=== PATIENT | male | born 1965 | race Caucasian/White ===

== ENCOUNTER → 2018-03-10 15:05 | Outpatient (CLI) | payer OTHER, SELFPAY ==
--- NOTE | 2018-03-10 15:21 | XR_ITS ---
EXAM: XR cervical spine 5V HISTORY: ITS.REASON: LT ARM/SHOULDER PAIN ORDERING PHYSICIAN: Rehan Maxwell PATIENT AGE: 52 years COMPARISON: None FINDINGS: There is normal alignment. Degenerative disc disease is present at C5-C6 and C6-C7. Mild foraminal narrowing is present on the left at these levels from uncovertebral hypertrophy. No fracture or dislocation. No lytic or blastic change. There are bilateral impacted molars in the mandible IMPRESSION: Degenerative disc disease at C5-C6 and C6-C7 with foraminal narrowing on the left at those levels as well
== END ==
PROVIDERS: PCP Internal Medicine; Visit Provider Internal Medicine
DX: M79.602 Pain in left arm (principal); M25.512 Pain in left shoulder
CPT/HCPCS: 72050

== ENCOUNTER → 2018-09-12 15:41 | Outpatient (CLI) | payer OTHER, SELFPAY ==
--- NOTE | 2018-09-12 15:48 | XR_ITS ---
XR shoulder RT min 2V HISTORY: ITS.REASON: RT SHOULDER PAIN ORDERING PHYSICIAN: Rehan Maxwell PATIENT AGE: 52 years Comparison: 04/18/2016 FINDINGS: No fracture or dislocation. No lytic or blastic change. There is normal mineralization. The joint spaces are well-preserved. No significant degenerative/arthritic changes. No erosive changes evident. IMPRESSION: Negative, no acute finding
== END ==
PROVIDERS: PCP Internal Medicine; Visit Provider Internal Medicine
DX: M25.511 Pain in right shoulder (principal)
CPT/HCPCS: 73030

== ENCOUNTER → 2019-01-09 14:52 | Outpatient (CLI) | payer OTHER, SELFPAY ==
--- NOTE | 2019-01-09 15:03 | XR_ITS ---
PROCEDURE: XR ACUTE ABDOMEN SERIES CLINICAL INDICATION: LOWER ABD PAIN COMPARISON: ABDPELW CT ABD PELVIS W/ CONTRAST from 02/05/2013 FINDINGS: Frontal view of the chest shows no acute finding. Upright and supine views of the abdomen demonstrates a nonspecific bowel gas pattern. There are few nondistended gas-filled loops of small bowel. No intestinal obstruction or free air. No acute bony anomalies. Small calcific density is present in the right pelvic region and could be due to a phleboliths IMPRESSION: No acute findings. Dictated by: Sukhjinder Tobin MD 01/09/2019 15:28 Signed by: <Electronically signed by Sukhjinder Tobin MD in [place]> 01/09/2019 15:28
[2019-01-09 15:07] LABS: Basophils % 0.2 % (0.1-2.0); Eosinophils # 0.1 K/mm3 (0.0-0.4); Eosinophils % 1.2 % (0.1-12.0); Hemoglobin 14.9 g/dL (14.1-18.0); Lymphocytes # 1.5 K/mm3 (0.7-4.5); Lymphocytes % 16.3 % (10-50); Mean Corpuscular HGB Conc 33.9 g/dL (31.8-35.4); Mean Corpuscular Hemoglobin 29.2 pg (27.0-31.2); Mean Corpuscular Volume 86.2 fl (80-94); Monocytes # 0.6 K/mm3 (0.1-1.0); Neutrophils # 6.8 K/mm3 (1.8-7.8); Neutrophils % 75.4 % (37.0-80.0); Platelet Count 233 K/mm3 (142-424)
[2019-01-09 15:15] LABS: Anion Gap 9.2 mEq/L (5-15); Blood Urea Nitrogen 19 mg/dL (7-18); Calcium 9.7 mg/dL (8.5-10.1); Carbon Dioxide 31 mmol/L (21.0-32.0); Chloride 101 mmol/L (98-107); Creatinine,Serum 1.08 mg/dL (0.70-1.30); Estimated Glomerular Filt Rate 72 ml/min (>60); GFR (African American) 87 ML/MIN (>60); Glucose 213 mg/dL (74-106); Potassium 4.2 mmoL/L (3.5-5.1); Sodium 137 mmol/L (136-145)
== END ==
PROVIDERS: Visit Provider Internal Medicine
DX: R10.30 Lower abdominal pain, unspecified (principal)
CPT/HCPCS: 36415; 74021; 80048; 85025

== ENCOUNTER → 2020-05-04 15:44 | Outpatient (CLI) | payer OTHER, SELFPAY ==
--- NOTE | 2020-05-04 15:48 | XR_ITS ---
PROCEDURE: XR CHEST 2V CLINICAL HISTORY: FELL AND HIT LT CHEST AT WORK ON 05/02/20 COMPARISON: No exams were available for comparison FINDINGS: The cardiomediastinal silhouette and pulmonary vascularity are within normal limits. The lungs are clear without infiltrates, suspicious nodules, or pleural effusions. No acute bony abnormalities. IMPRESSION: No acute findings. Dictated by: Sukhjinder Tobin MD 05/04/2020 16:02 Sukhjinder Tobin MD in [facility] 05/04/2020 16:02
== END ==
PROVIDERS: PCP Internal Medicine; Visit Provider Internal Medicine
DX: R07.89 Other chest pain (principal); W19.XXXA Unspecified fall, initial encounter
CPT/HCPCS: 71046

== ENCOUNTER → 2020-05-09 11:36 | Outpatient (CLI) | payer OTHER, SELFPAY ==
--- NOTE | 2020-05-09 11:40 | XR_ITS ---
PROCEDURE: XR RIBS LT MIN 3V W CXR1V CLINICAL INDICATION: LT RIB PAIN, S/P SLIP AND INJURY 05/02 COMPARISON: CR XR CHEST 2V from 05/04/2020 FINDINGS: Frontal view of the chest shows no acute finding. There are old fractures involving the left ribs at the 11th 10th and 8th ribs. No acute displaced rib fracture is evident. No evidence of pneumothorax. IMPRESSION: Old left-sided rib fractures. No acute finding. Dictated by: Sukhjinder Tobin MD 05/09/2020 12:02 Sukhjinder Tobin MD in [place] 05/09/2020 12:02
== END ==
PROVIDERS: PCP Internal Medicine; Visit Provider Internal Medicine
DX: R07.81 Pleurodynia (principal); W19.XXXA Unspecified fall, initial encounter
CPT/HCPCS: 71101

== ENCOUNTER → 2020-07-09 08:49 | Outpatient (CLI) | payer OTHER, SELFPAY ==
[2020-07-09 10:16] LABS: Thyroid Stimulating Hormone 3.07 uIU/mL (0.465-4.68)
[2020-07-20 14:55] LABS: Testosterone, Total, LC/MS 609.3 ng/dL (264.0-916.0); Testosterone,Free 6.7 pg/mL (7.2-24.0)
== END ==
PROVIDERS: Visit Provider Physician Assistant
DX: R68.82 Decreased libido (principal)
CPT/HCPCS: 36415; 84402; 84403; 84443

== ENCOUNTER → 2020-10-21 15:18 | Outpatient (CLI) | payer OTHER, SELFPAY ==
--- NOTE | 2020-10-21 15:22 | XR_ITS ---
PROCEDURE: XR PELVIS 1-2V CLINICAL INDICATION: RT PELVIS PAIN COMPARISON: CR XR ACUTE ABDOMEN SERIES from 01/09/2019 TECHNIQUE: XR Pelvis AP View FINDINGS: No fracture or dislocation is evident. No significant degenerative change. No lytic or blastic change. Small pelvic calcifications are present similar to an older exam of 01/09/2019. IMPRESSION: No acute findings. Dictated by: Sukhjinder Tobin MD 10/21/2020 15:40 Sukhjinder Tobin MD in [place] 10/21/2020 15:40
== END ==
PROVIDERS: PCP Internal Medicine; Visit Provider Internal Medicine
DX: R10.2 Pelvic and perineal pain (principal)
CPT/HCPCS: 72170

== ENCOUNTER → 2020-10-22 09:27 | Outpatient (CLI) | payer OTHER, SELFPAY ==
[2020-10-22 11:22] LABS: Free T4 (Free Thyroxine) 1.04 ng/dl (0.78-2.19)
[2020-10-22 11:37] LABS: Thyroid Stimulating Hormone 3.96 uIU/mL (0.465-4.68)
[2020-10-23 08:10] LABS: FSH 5.7 mIU/mL (1.5-12.4); LH 6.2 mIU/mL (1.7-8.6); Prolactin 20.7 ng/mL (4.0-15.2)
[2020-10-27 13:10] LABS: Testosterone,Free 7.7 pg/mL (7.2-24.0)
== END ==
PROVIDERS: Visit Provider Physician Assistant
DX: E03.8 Other specified hypothyroidism (principal); E06.3 Autoimmune thyroiditis; R79.89 Other specified abnormal findings of blood chemistry
CPT/HCPCS: 36415; 82626; 82670; 83001; 83002; 84146; 84402; 84403; 84439; 84443

== ENCOUNTER → 2022-06-23 09:52 | Outpatient (CLI) | payer OTHER, SELFPAY ==
[2022-06-23 10:43] LABS: Chloride 108 mmol/L (98-107)
[2022-06-23 10:44] LABS: Potassium 4.8 mmoL/L (3.5-5.1); Sodium 138 mmol/L (136-145)
[2022-06-23 10:46] LABS: Alanine Aminotransferase 26 U/L (12-78); Albumin Level 4.3 g/dl (3.5-5.0); Albumin/Globulin Ratio 1.7 (1.1-1.8); Alkaline Phosphatase 58 U/L (38-126); Anion Gap 8.8 mEq/L (5-15); Aspartate Amino Transferase 41 U/L (17-59); Bilirubin,Total 0.9 mg/dl (0.2-1.3); Blood Urea Nitrogen 24 mg/dl (9-20); Carbon Dioxide 26 mmol/L (22.0-30.0); Estimated Glomerular Filt Rate 88 ml/min (>60); GFR (African American) 106 ML/MIN (>60); Globulin 2.6 g/dL (1.3-3.2); Total Protein,Serum 6.9 g/dl (6.3-8.2)
[2022-06-23 10:47] LABS: Calcium 8.7 mg/dl (8.4-10.2); Chol/HDL Ratio 4.3 (1-3.5); Cholesterol 214 mg/dl (140-200); Glucose 149 mg/dl (74-100); HDL Cholesterol 50 mg/dl (40-60); Triglycerides 138 mg/dl (30-150); VLDL Cholesterol 28 mg/dL (0-40)
[2022-06-23 10:58] LABS: Direct LDL Cholesterol 125.48 mg/dL (100-129)
[2022-06-23 11:17] LABS: Thyroid Stimulating Hormone 2.69 uIU/mL (0.465-4.68)
== END ==
PROVIDERS: PCP Internal Medicine; Visit Provider Physician Assistant
DX: E78.00 Pure hypercholesterolemia, unspecified (principal); E03.8 Other specified hypothyroidism; E06.3 Autoimmune thyroiditis; E10.65 Type 1 diabetes mellitus with hyperglycemia
CPT/HCPCS: 36415; 80053; 80061; 84443

== ENCOUNTER → 2022-09-08 08:10 | Outpatient (CLI) | payer OTHER, SELFPAY ==
[2022-09-08 09:20] LABS: Alanine Aminotransferase 23 U/L (12-78); Albumin Level 4.1 g/dl (3.5-5.0); Albumin/Globulin Ratio 1.9 (1.1-1.8); Alkaline Phosphatase 63 U/L (38-126); Anion Gap 9.3 mEq/L (5-15); Aspartate Amino Transferase 30 U/L (17-59); Bilirubin,Total 0.8 mg/dl (0.2-1.3); Blood Urea Nitrogen 21 mg/dl (9-20); Calcium 8.6 mg/dl (8.4-10.2); Carbon Dioxide 30 mmol/L (22.0-30.0); Chloride 105 mmol/L (98-107); Chol/HDL Ratio 3.8 (1-3.5); Cholesterol 152 mg/dl (140-200); Estimated Glomerular Filt Rate 88 ml/min (>60); GFR (African American) 106 ML/MIN (>60); Globulin 2.2 g/dL (1.3-3.2); Glucose 127 mg/dl (74-100); HDL Cholesterol 40 mg/dl (40-60); Potassium 4.3 mmoL/L (3.5-5.1); Sodium 140 mmol/L (136-145); Total Protein,Serum 6.3 g/dl (6.3-8.2); Triglycerides 160 mg/dl (30-150); VLDL Cholesterol 32 mg/dL (0-40)
[2022-09-08 09:31] LABS: Direct LDL Cholesterol 78.86 mg/dL (100-129)
== END ==
PROVIDERS: PCP Internal Medicine; Visit Provider Physician Assistant
DX: E78.00 Pure hypercholesterolemia, unspecified (principal); E10.65 Type 1 diabetes mellitus with hyperglycemia
CPT/HCPCS: 36415; 80053; 80061

== ENCOUNTER 2023-09-21 10:26 | Outpatient (CLI) | payer OTHER, SELFPAY ==
[2023-09-21 12:13] LABS: Cholesterol 253 mg/dl (140-200); Triglycerides 136 mg/dl (30-150); VLDL Cholesterol 27 mg/dL (0-40)
[2023-09-21 12:14] LABS: Chol/HDL Ratio 5.8 (1-3.5); HDL Cholesterol 44 mg/dl (40-60)
[2023-09-21 12:25] LABS: Direct LDL Cholesterol 145.17 mg/dL (100-129)
== END 2023-09-21 23:59 | disposition home or self-care (01) ==
LOC: LAB 10:27
PROVIDERS: PCP Internal Medicine; Visit Provider Internal Medicine
DX: E78.5 Hyperlipidemia, unspecified (principal)
CPT/HCPCS: 36415; 80061

== ENCOUNTER 2024-07-21 15:01 | Outpatient (RCR) | payer BC, SELFPAY | END 2024-08-26 15:00 | disposition home or self-care (01) | LOC: CR 15:01 | PROVIDERS: Visit Provider Clinical Nurse Specialist Adult Health | DX: Z95.5 Presence of coronary angioplasty implant and graft (principal) | CPT/HCPCS: 93798 ==

== ENCOUNTER 2024-10-09 08:36 | Outpatient (CLI) | payer BC, SELFPAY ==
[2024-10-09 09:06] LABS: Hematocrit 43.8 % (42.0-52.0); Mean Corpuscular HGB Conc 34.2 g/dL (31.8-35.4); Mean Corpuscular Hemoglobin 28.8 pg (27.0-31.2); Mean Corpuscular Volume 84.2 fl (80-94); Nucleated Red Blood Cells # 0 10^3/uL; Nucleated Red Blood Cells % 0 %; Platelet Count 207 K/mm3 (142-424); Red Cell Distribution Width 13.2 % (11.5-17.5); Red Cell Distribution Width-SD 40.3 fL; White Blood Count 5.1 K/mm3 (4.8-10.8)
[2024-10-09 09:26] LABS: Albumin Level 4.6 g/dl (3.5-5.0); Chloride 104 mmol/L (98-107); Potassium 4.9 mmoL/L (3.5-5.1); Sodium 139 mmol/L (136-145)
[2024-10-09 09:29] LABS: Alanine Aminotransferase 39 U/L (12-78); Albumin/Globulin Ratio 1.7 (1.1-1.8); Anion Gap 9.9 mEq/L (5-15); Aspartate Amino Transferase 43 U/L (17-59); Blood Urea Nitrogen 32 mg/dl (9-20); Carbon Dioxide 30 mmol/L (22.0-30.0); Estimated Glomerular Filt Rate 63 ml/min (>60); GFR (African American) 76 ML/MIN (>60); Globulin 2.7 g/dL (1.3-3.2); Total Protein,Serum 7.3 g/dl (6.3-8.2)
[2024-10-09 09:30] LABS: Alkaline Phosphatase 60 U/L (38-126); Bilirubin,Total 1.1 mg/dl (0.2-1.3); Calcium 9.4 mg/dl (8.4-10.2); Glucose 162 mg/dl (74-100)
[2024-10-09 09:44] LABS: Chol/HDL Ratio 3.1 (1-3.5); Cholesterol 132 mg/dl (140-200); HDL Cholesterol 42 mg/dl (40-60); Triglycerides 92 mg/dl (30-150); VLDL Cholesterol 18 mg/dL (0-40)
[2024-10-09 09:45] LABS: Creatinine,Urine Random 98 mg/dL (Not Estab.); Microalbumin < 6.000 mg/L (0-16.7)
[2024-10-09 09:55] LABS: Direct LDL Cholesterol 75.85 mg/dL (100-129)
[2024-10-09 10:01] LABS: Thyroid Stimulating Hormone 3.15 uIU/mL (0.465-4.68)
[2024-10-09 10:36] LABS: Vitamin B12 > 1000 pg/mL (239-931)
== END 2024-10-09 23:59 | disposition home or self-care (01) ==
LOC: LAB 08:38
PROVIDERS: Nurse Practitioner Family; PCP Internal Medicine; Visit Provider Internal Medicine
DX: E10.65 Type 1 diabetes mellitus with hyperglycemia (principal); E06.3 Autoimmune thyroiditis; E78.5 Hyperlipidemia, unspecified; I25.10 Atherosclerotic heart disease of native coronary artery without angina pectoris
CPT/HCPCS: 36415; 80053; 80061; 82043; 82570; 82607; 84443; 85027

== ENCOUNTER 2025-03-06 08:56 | Outpatient (CLI) | payer BC, SELFPAY ==
--- OUTSIDE RECORDS SUMMARY | 2025-03-02 16:00 | XMS_ITS | Encounter Summary ---
Author Organization [facility] Address [address] [place] [address] Care Team Providers Care Swimming Pool Service Technician Name Role Phone Rehan Maxwell MD Primary Care Provider [phone] Reason for Visit * Reason Comments Diabetes Type 1 diabetes emma itus with hyperglycemia Encounter Details Date Type Department Care Team (Late st Contact Info) Description 03/02/2025 4:00 PM EDT Office Visit [facility] END[facility] [address] [place] [address] Katarina Briceño MD [address] [facility] [address] [place] [address] Type 1 diabetes mellitus with hyperglycemia (Primary Dx) Social History Tobacco Use Types Packs/Day Years Used Date Smoking Tobacco: Never Smokeless Tobacco: Never Tobacco Cessation:Counseling Given: Not Answered Alcohol Use Standard Drinks/Week Comments Not Currently 0 (1 standard drink = 0.6 oz pur e alcohol) AUDIT-C Answer Date Recorded Q1: How often do you have a drink containing alcohol? Never 06/12/2024 Q2: How many drinks containi ng alcohol do you have on a typical day when you are drinking? Patient does not drink Q3: How often do you have si x or more drinks on one occasion? Never 06/12/2024 Abuse Screen Answer Date Recorded Feels Unsafe at Home or Work/School no 06/12/2024 Feels Threatened by Someone no 05/21 Does Anyone Try to Keep You From Having Contact with Others or Doing Things Outside Your Home? no 06/12/2024 Physical Signs of Abuse Present no 06/12/2024 Housing Stability Answer Date Recorded Current Living Arrangements home 05/21 Potentially Unsafe Housing Conditions Not on gita e 06/12/2024 Disabilities Answer Date Recorded Difficulty Concentrating, Remembering or Making Decisions no 06/12/2024 Difficulty Managing Errands Independently no 06/12/2024 Sex and Gender Information Value Date Recorded Sex Assigned at Male 10/04/2024 9:23 PM EDT Legal Sex Male 1:12 PM EDT Gender Identity Not on file Sexual Orientation Straight 10/04/2024 9: 23 PM EDT documented as of this encounter Last Filed Vital Signs Vital Sign Reading Time Taken Comments Blood Pressure 124/80 03/02/2025 3:49 PM EDT Pulse 70 03/02/2025 3:49 PM EDT Temperature - - Respiratory Rate - - Oxygen Saturation 97% 03/02/2025 3:49 PM EDT Inhaled Oxygen Concentration - - Weight 85.7 kg (189 lb) 03/02/2025 3:49 PM EDT Height 177.8 cm (5' 10 ) 03/02/2025 3:49 PM EDT Body Mass Index 27.12 03/02/2025 3:49 PM EDT documented in this encounter Plan of Treatment Upcoming Encounters Date Type Department Care Team (Late st Contact Info) Description 04/06/2025 3:00 PM EST Office Visit [facility] C[facility]Y [address] [place] [address] Sonal Dunne APRN [address] [place] [address] 07/05/2025 3:30 PM EST Office Visit [facility] END[facility]CR[facility] [address] [place] [address] Katarina Briceño MD [address] [place] [address] documented as of this encounter Procedures Procedure Name Priority Date/Time Associated Diagnosis Comments POCT GLYCOSYLATED HEMOGLOBIN (HGB A1C) Routine 03/02/2025 3:56 PM EDT Type 1 diabetes mellitus with hyperglycemia POCT GLUCOSE, BLD (NON STRIP) Routine 03/02/2025 3:55 PM EDT Type 1 diabetes mellitus with hyperglycemia documented in this encounter Results * (ABNORMAL) POC Glycosylated Hemoglobin (Hb A1C) (03/02/2025 3:56 PM EDT) Hemoglobin A1C 7.3(A) 4.5 - 5.7 % [facility] Lot Number [id number] [facility] Expiration Date 2026-09-21 [facility] Blood 03/02/2025 3:56 PM EDT us Katarina Briceño MD POINT OF CARE TEST ORDERABLES Fi nal Result [facility]
[address] [place] [address], * (ABNORMAL) POC Glucose, Blood (03/02/2025 3:55 PM EDT) Glucose 160(A) 70 - 130 mg/dL Lot Number [id number] Expiration Date 2026-08-07 Blood 03/02/2025 3:55 PM EDT us Katarina Briceño MD POINT OF CARE TEST ORDERABLES Fi nal Result documented in this encounter Visit Diagnoses Diagnosis Type 1 diabetes mellitus with hyperglycemia- Primary documented in this encounter Care Teams Swimming Pool Service Technician Relationship Specialty Start Date End Date Rehan Maxwell MD [address] [facility] [address] [place] [id number] PCP - General Internal Medicine 03/25/20 documented as of this encounter
--- OUTSIDE RECORDS SUMMARY | 2025-03-06 09:00 | XMS_ITS | Clinical Summary ---
[facility] Address [address] [place] [address] Care Team Providers Care Director Advanced Name Role Phone Rehan Maxwell MD Primary Care Provider [phone] Allergies Active Allergy Reactions Criticality Noted Date Comments Levofloxacin Other (See Comments) High 03/25/2020 Joint pain Medications piroxicam (FELDENE) 20 MG capsule Take 1 capsule by mouth Daily. 0 Active insulin glargine (Lantus) 100 UNIT/ML injection PRN off insulin pump, 35 units once daily 10 mL 2 Active Contour Next Test test stripIndications: Type 1 diabetes mellitus with hyperglycemia TEST 8-9 TIMES A DAY. 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 5 Active HumaLOG 100 UNIT/ML injectionIndicati ons:Type 1 diabetes mellitus with hyperglycemia USE DIRECTED PER INSULIN PUMP, UP TO 100 UNITS MAX PER DAY 90 mL 3 5 Active Continuous Glucose Transmitter (Dexcom G6 Transmitter) miscIndications:T ype 1 diabetes mellitus with hyperglycemia USE 1 DEVICE EVERY 3 MONTHS 1 each 3 5 Active empagliflozin (Jardiance) 10 MG tablet tabletIndications :Coronary artery disease involving chehalis coronary artery of chehalis heart without angina pectoris Take 1 tablet by mouth Daily. 30 tablet 5 5 Active olmesartan (BENICAR) 20 MG tabletIndications :Benign essential hypertension Take 1 tablet by mouth Daily. 90 tablet 1 5 Active carvedilol (COREG) 3.125 MG tablet Take 1 tablet by mouth 2 (Two) Times a Day. 180 tablet 1 5 Active clopidogrel (PLAVIX) 75 MG tablet Take 1 tablet by mouth Daily. 90 tablet 1 5 Active ezetimibe (ZETIA) 10 MG tabletIndications :Hyperlipidemia LDL goal <70,Coronary artery disease involving chehalis coronary artery of chehalis heart without angina pectoris Take 1 tablet by mouth Daily. 90 tablet 1 5 Active rosuvastatin (CRESTOR) 10 MG tablet Take 0.5 tablets by mouth 2 (Two) Times a Day. Two times a day if tolerated since 10mg once a day is not tolerated. 90 tablet 1 5 Active traZODone (DESYREL) 50 MG tablet Take one to two pills at night if needed for insomnia 60 tablet 2 5 Active Additional Information Patient not taking.Reported on 03/02/2025 cloNIDine (CATAPRES) 0.1 MG tablet TAKE 1 TABLET BY MOUTH EVERY 12 HOURS IF BLOOD PRESSURE IS OVER 160/90 60 tablet 5 Active Continuous Glucose Sensor (Dexcom G6 Sensor)Indication s:Type 1 diabetes mellitus with hyperglycemia PL[address] 1 SENSOR TO THE APPROPRIATE AREA DIRECTED EVERY 10 DAYS 9 each 1 5 Active Active Problems Problem Noted Date Diagnosed Date Statin not tolerated 07/09/2024 Assessment & Plan (07/09/2024 3:23 PM EST): His Rosuvastatin was increased from 5mg daily to 20mg daily inpatient. We had done a low dose related to his myalgias with statins. Today he reports he was unable to tolerate 20mg related to muscle aches so he has been cutting it in half for 10mg daily. He said this is still causing myalgias but is tolerable. For today, we will go back to Rosuvastatin 5mg and start Zetia 10mg daily. Will also try to get Repatha approved in the meantime, although it has not been affordable in the past. Shortness of breath 04/08/2024 Assessment & Plan (06/03/2024 5:25 PM EST): Patient had one episode of shortness of air. He went home from [facility] and took his blood pressure - it was 81/52 with a normal heart rate. He then remembered that he had taken a whole blood pressure pill instead of the half he normally takes. He has not had this happen again since but wanted to get checked out due to his families cardiac history. 06/03/2024 Abnormal DARCI. Order [facility]. Assessment & Plan (04/08/2024 3:59 PM EST): Patient had one episode of shortness of air. He went home from [facility] and took his blood pressure - it was 81/52 with a normal heart rate. He then remembered that he had taken a whole blood pressure pill instead of the half he normally takes. He has not had this happen again since but wanted to get checked out due to his families cardiac history. Family history of early CAD 04/08/2024 Assessment & Plan (06/03/2024 5:24 PM EST): His dad had a CABG at age 57 then later on was diagnosed with Aneurysm in heart that caused a heart attack, afib, and CHF. His sister at age 53 from a heart attack. His 34 yo niece in her sleep from a heart attack. Daughter has POTS. 06/03/24 abnormal DARCI. Check left heart catherization Assessment & Plan (04/08/2024 3:58 PM EST): His dad had a CABG at age 57 then later on was diagnosed with Aneurysm in heart that caused a heart attack, afib, and CHF. His sister at age 53 from a heart attack. His 34 yo niece in her sleep from a heart attack. Daughter has POTS. Coronary artery disease invo lving chehalis coronary artery of chehalis heart without angina pectoris 04/08/2024 Assessment & Plan (10/06/2024 3:42 PM EDT): Repatha- Cost too high Statins- only on low doses, otherwise he gets myalgias. Tried Rosuvastatin 20mg, 10mg, and now we are back to 5mg. He is willing to try to take the 5mg BID. He is also now on and tolerating Zetia that we added last visit. He will update fasting lipids this weekend when he gets labs for [facility]. 06/12/2024 [facility] 90% LAD stenosis treated 3.5 x 12, 3.0 x 38 Xience amy point LAST. 90% OM1 treated 2.5 x 28 Xience EES 40-50% distal LAD, and right PDA. LVEF 50% He is still on Plavix and ASA. He said he feels much better since getting his cardiac stents. He can breathe better and able to work and go up stairs without any issues. He did 6 sessions of cardiac rehab, but due to work he is now doing home session on his elliptical 3 times a week. He has also cut his sodium down to 1500mg daily. Assessment & Plan (07/09/2024 3:22 PM EST): 06/12/2024 [facility] 90% LAD stenosis treated 3.5 x 12, 3.0 x 38 Xience amy point LAST. 90% OM1 treated 2.5 x 28 Xience EES 40-50% distal LAD, and right PDA. LVEF 50% He was started on Plavix and told to continue ASA. His Rosuvastatin was increased from 5mg daily to 20mg daily. We had done a low dose related to his myalgias with statins. Today he reports he was unable to tolerate 20mg related to muscle aches so he has been cutting it in half for 10mg daily. He said this is still causing myalgias but is tolerable. For today, we will go back to Rosuvastatin 5mg and start Zetia 10mg daily. Will also try to get Repatha approved in the meantime, although it has not been affordable in the past. EKG today shown sinus rhythm with RBBB. HR 69. Abnormal EKG. He said he feels much better since getting his cardiac stents. He can breathe better and able to work and go up stairs without any issues. He plans to start cardiac rehab next week. Assessment & Plan (06/03/2024 5:26 PM EST): 06/03/24 abnormal DARCI; check [facility] Assessment & Plan (04/08/2024 4:00 PM EST): -check echo and DARCI. If insurance will not cover a DARCI then we can consider a CCTA or at a minimum coronary calcium score. Benign essential hypertension 07/04/2020 Assessment & Plan (06/03/2024 5:20 PM EST): He did not have any medication to hold for stress test today and his blood pressure was 180 systolic before stress test. He said he has noticed having increased blood pressure at home as well. Of course he has been stressed with the passing of his father and his niece. On his own, he increased his Benicar 10mg back to 20mg daily a few weeks ago. Blood pressure in exam room 144/88 - so we will continue Benicar at 20mg daily and add Clonidine PRN while awaiting left heart cath and for his stress level to decrease back to his baseline. Assessment & Plan (04/08/2024 4:03 PM EST): Little elevated today. Will recheck at follow-up. 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 Tolerated simvastatin okay. Assessment & Plan (10/06/2024 3:42 PM EDT): Repatha- Cost too high Statins- only on low doses, otherwise he gets myalgias. Tried Rosuvastatin 20mg, 10mg, and now we are back to 5mg. He is willing to try to take the 5mg BID. He is also now on and tolerating Zetia that we added last visit. He will update fasting lipids this weekend when he gets labs for [facility]. Assessment & Plan (07/09/2024 3:22 PM EST): His Rosuvastatin was increased from 5mg daily to 20mg daily inpatient. We had done a low dose related to his myalgias with statins. Today he reports he was unable to tolerate 20mg related to muscle aches so he has been cutting it in half for 10mg daily. He said this is still causing myalgias but is tolerable. For today, we will go back to Rosuvastatin 5mg and start Zetia 10mg daily. Will also try to get Repatha approved in the meantime, although it has not been affordable in the past. Assessment & Plan (06/03/2024 5:25 PM EST): May need to increase Rosuvastatin and add ASA after LHC. Abnormal liver function tests Acid reflux Diverticulitis Sleep apnea with use of cont inuous positive airway pressure (CPAP) Overview (06/03/2024): He has coexisting sleep apnea that is followed at [facility]. [place] [address]. He reports he has a cpap that he uses and that his baseline AHI was 49. Discussed strong correlation between untreated SOFIA, sleep , and CAD. Assessment & Plan (06/03/2024 5:26 PM EST): He has coexisting sleep apnea that is followed at [facility]. [place] [address]. He reports he has a cpap that he uses and that his baseline AHI was 49. Discussed strong correlation between untreated SOFIA, sleep , and CAD. Assessment & Plan (04/08/2024 4:00 PM EST): He has coexisting sleep apnea that is followed at [facility]. [place] [address]. He reports he has a cpap that he uses and that his baseline AHI was 49. Discussed strong correlation between untreated SOFIA, sleep , and CAD. Resolved Problems Problem Noted Date Diagnosed Date Resolved Date Abnormal stress test 06/03/2024 025 Overview (06/03/2024): 06/03/2024 DARCI- Abnormal stress echo consistent with an intermediate risk for myocardial ischemia. The following left ventricular wall segments are hypokinetic: mid anterior, apical anterior, apical lateral, and apex hypokinetic. Dr. Andrews recommends [facility]. Discussed risks and benefits of left heart catherization. Patient would like to move forward with this. Assessment & Plan (06/03/2024 5:19 PM EST): 06/03/2024 DARCI- Abnormal stress echo consistent with an intermediate risk for myocardial ischemia. The following left ventricular wall segments are hypokinetic: mid anterior, apical anterior, apical lateral, and apex hypokinetic. Dr. Andrews recommends [facility]. Discussed risks and benefits of left heart catherization. Patient would like to move forward with this. Hypotension due to drugs 04/08/2024 Assessment & Plan (04/08/2024 3:59 PM EST): Patient had one episode of shortness of air. He went home from [facility] and took his blood pressure - it was 81/52 with a normal heart rate. He then remembered that he had taken a whole blood pressure pill instead of the half he normally takes. He has not had this happen again since but wanted to get checked out due to his families cardiac history. Encounters Date Type Department Care Team Description 03/02/2025 4:00 PM EDT Office Visit [facility] ENDOCRINOLOGY [address] [facility] [address] [place] [address] Katarina Briceño MD Type 1 diabetes mellitus with hyperglycemia (Primary Dx) 03/02/2025 Travel 12/14/2024 Refill [facility] [address] [facility] [address] [place] [address] Katarina Briceño MD Type 1 diabetes mellitus with hyperglycemia from Last 3 Months Immunizations Immunization Administration Dates Next Due Fluzone >6mos 03/18/2017 Fluzone (or Fluarix & Flulaval for VFC) >6mos Family History Medical History Relation Name Comments Arthritis Father Guillermo Ecklar Heart attack Father Guillermo Ecklar Hyperlipidemia Father Guillermo Ecklar Hypertension Father Guillermo Ecklar Heart attack Maternal Grandmother Arthritis Mother Mary Jane Ecklar Hyperlipidemia Mother Mary Jane Ecklar Hypertension Mother Mary Jane Ecklar Relation Name Status Comments Father Guillermo Fajardo Alive Maternal Grandmother Mother Mary Jane Fajardo Alive Social History Tobacco Use Types Packs/Day Years [...] Orientation Straight 10/04/2024 9: 23 PM EDT Last Filed Vital Signs Vital Sign Reading Time Taken Comments Blood Pressure 124/80 03/02/2025 3:49 PM EDT Pulse 70 03/02/2025 3:49 PM EDT Temperature 36.4 C (97.5 F) 06/16/2024 3:27 PM EST Respiratory Rate 16 06/16/2024 3:27 PM EST Oxygen Saturation 97% 03/02/2025 3:49 PM EDT Inhaled Oxygen Concentration - - Weight 85.7 kg (189 lb) 03/02/2025 3:49 PM EDT Height 177.8 cm (5' 10 ) 03/02/2025 3:49 PM EDT Body Mass Index 27.12 03/02/2025 3:49 PM EDT Plan of Treatment Upcoming Encounters Date Type Department Care Team (Late st Contact Info) Description 04/06/2025 3:00 PM EST Office Visit [facility] CARDIOLOGY [address] [place] [address] Sonal Dunne APRN [address] [place] [address] 07/05/2025 3:30 PM EST Office Visit [facility] ENDOCRINOLOGY [address] [place] [address] Katarina Briceño MD [address] [place] [address] Health Maintenance Due Date Last Done Comments Hepatitis B (1 of 3 - 19+ 3- dose series) 11/18/1986 Pneumococcal Vaccine 50+ (1 of 2 - PCV) 11/18/1986 TDAP/TD VACCINES (1 - Tdap) 11/18/1986 COLOGUARD 11/18/2012 COLON CANCER SCREENING 5 YEA R SIGMOIDOSCOPY 11/18/2012 COLONOSCOPY 11/18/2012 COLORECTAL CANCER SCREENING 11/18/2012 CT COLONOGRAPHY 11/18/2012 FECAL OCCULT BLOOD TEST 11/18/2012 FIT Testing (1 year) 11/18/2012 ZOSTER VACCINE (1 of 2) 11/18/2017 ANNUAL PHYSICAL 03/25/2020 HEPATITIS C SCREENING 03/25/2020 DIABETIC EYE EXAM 09/03/2021 09/03/2020 (Sidney mendoza-Reported (Performed Externally)) DIABETIC FOOT EXAM 11/13/2022 11/13/2021, 0 11/13/2021, 11/13/2021, Additional history exists INFLUENZA VACCINE 12/18/2024 03/30/2022, 03/18/2017 LIPID PANEL 06/12/2025 06/12/2024, 01/19, 07/08/2023, Additional history exists HEMOGLOBIN A1C 08/31/2025 03/02/2025, 0501/2025, 06/12/2024, Additional history exists URINE MICROALBUMIN-CREATININ E RATIO (uACR) 10/15/2025 10/15/2024, 07/08/2023, 11/13/2021, Additional history exists Medical Devices Implanted Type Area Burlap Bag Sewer Device Identifier Shelf Expiration Date Model / Serial / Lot Stnt Cornry Rx Xience/Skypoi nt Rapdxng 3x38mm - [id number] Implanted:Qty : 1 on 06/12/2024 by Maximino Zaragoza MD at [facility] N/A: Coronary SANDRA VASCULAR 03/08/2027 [id number] / / [id number] Stnt [employer]ry Rx Xience/Skypoi nt Rapdxng 3.5x12mm - [id number] Implanted:Qty : 1 on 06/12/2024 by Maximino Zaragoza MD at [facility] N/A: Coronary SADNRA VASCULAR 02/09/2027 [id number] / / [id number] Stnt Cornry Rx Xience/Skypoi nt Rapdxng [id number] - [id number] Implanted:Qty : 1 on 06/12/2024 by Maximino Zaragoza MD at [facility] N/A: Coronary SANDRA VASCULAR 01/22/2027 [id number] / / [id number] Procedures Procedure Name Priority Date/Time Associated Diagnosis Comments POCT GLYCOSYLATED HEMOGLOBIN (HGB A1C) Routine 03/02/2025 3:56 PM EDT Type 1 diabetes mellitus with hyperglycemia POCT GLUCOSE, BLD (NON STRIP) Routine 03/02/2025 3:55 PM EDT Type 1 diabetes mellitus with hyperglycemia MICROALBUMIN / CREATININE URINE RATIO Routine 10/15/2024 1:59 PM EDT Type 1 diabetes mellitus with hyperglycemia LIPID PANEL STAT 06/12/2024 9:39 AM EST from Last 3 Months or Most Recently Relevant to Health Maintenance Results * (ABNORMAL) POC Glycosylated Hemoglobin (Hb A1C) (03/02/2025 3:56 PM EDT) [facility] Signature Hemoglobin A1C 7.3(A) 4.5 - 5.7 % [facility] Lot Number [id number] [facility] Expiration Date 2026-09-21 [facility] Blood 03/02/2025 3:56 PM EDT us Katarina Briceño MD POINT OF CARE TEST ORDERABLES Fi nal Result Performing Organization Address [facility]/ZIP Co de Phone Number [facility]
[address] [place] [address], * (ABNORMAL) POC Glucose, Blood (03/02/2025 3:55 PM EDT) Glucose 160(A) 70 - 130 mg/dL Lot Number [id number] Expiration Date 2026-08-07 Blood 03/02/2025 3:55 PM EDT us Katarina Briceño MD POINT OF CARE TEST ORDERABLES Fi nal Result * Microalbumin / Creatinine Urine Ratio - Urine, Clean Catch (10/15/2024 1:59 PM EDT) Urine Urine specimen obtained by clean catch procedure / Unknown us Katarina Briceño MD URINE ORDERABLES Final Result Performing Organization Address [facility]/ZIP Co de Phone Number [facility]
[address] [place] [address], * (ABNORMAL) Lipid Panel (06/12/2024 9:39 AM EST) Total Cholesterol 174 0 - 200 mg/dL 06/12/2024 10:15 AM EST [facility] Triglycerides 112 0 - 150 mg/dL 06/12/2024 10:15 AM EST [facility] HDL Cholesterol 48 40 - 60 mg/dL 06/12/2024 10:15 AM EST [facility] LDL Cholesterol 106(H) 0 - 100 mg/dL 06/12/2024 10:15 AM EST [facility] VLDL Cholesterol 20 5 - 40 mg/dL 06/12/2024 10:15 AM EST [facility] LDL/HDL Ratio 2.16 06/12/2024 10:15 AM EST [facility] Blood Line / Unknown 06/12/2024 9: 39 AM EST 06/12/2024 9:50 AM EST Narrative [facility] - 06/12/2024 10:15 AM EST Cholesterol Reference Ranges (U.S. Department of Health and Human Services ATP III Classifications) Desirable <200 mg/dL Borderline High 200-239 mg/dL High Risk >240 mg/dL Triglyceride Reference Ranges (U.S. Department of Health and Human Services ATP III Classifications) Normal <150 mg/dL Borderline High 150-199 mg/dL High 200-499 mg/dL Very High >500 mg/dL HDL Reference Ranges (U.S. Department of Health and Human Services ATP III Classifications) Low <40 mg/dl (major risk factor for CHD) High >60 mg/dl ('negative' risk factor for CHD) LDL Reference Ranges (U.S. Department of Health and Human Services ATP III Classifications) Optimal <100 mg/dL Near Optimal 100-129 mg/dL Borderline High 130-159 mg/dL High 160-189 mg/dL Very High >189 mg/dL LDL is calculated using the NIH LDL-C calculation. us Nika Garcia APRN LAB BLOOD ORDERABLES Final Result [facility]
[address] [place] [address], from Last 3 Months or Most Recently Relevant to Health Maintenance Insurance [facility] PPO Member Subscriber Plan / Payer (Ef fective 2023-Present) Name:Inocente Fajardo Relation to Subscriber:Self Name:Inocente Fajardo Payer ID:[id number] (NAIC) Type:Not on file Address: [address] [place] [id number] Care Teams Director Advanced Relationship Specialty Start Date End Date Rehan Maxwell MD [address] [facility] [address] [place] [address] PCP - General Internal Medicine 03/25/20
--- OUTSIDE RECORDS SUMMARY | 2025-03-06 09:00 | XMS_ITS | Encounter Summary ---
[facility] Address [address] [place] [address] Care Team Providers Care Gas Or Petroleum Operator Name Role Phone Rehan Maxwell MD Primary Care Provider [phone] Encounter Details Date Type Department Care Team (Latest Contact Info) Description 03/02/2025 Travel Social History Tobacco Use Types Packs/Day Years Used Date Smoking Tobacco: Never Smokeless Tobacco: Never Alcohol Use Standard Drinks/Week Comments Not Currently [...] PM EDT documented as of this encounter Plan of Treatment Upcoming Encounters Date Type Department Care Team (Late st Contact Info) Description 04/06/2025 3:00 PM EST Office Visit [facility] CARDIOLOGY [address] [place] [id number] Sonal Dunne APRN [address] [place] [address] 07/05/2025 3:30 PM EST Office Visit [facility] ENDOCRINOLOGY [address] [facility] [address] [place] [address] Katarina Briceño MD [address] [facility] [address] [place], [place] [id number] documented as of this encounter Visit Diagnoses Not on filedocumented in this encounter Care Teams Gas Or Petroleum Operator Relationship Specialty Start Date End Date Rehan Maxwell MD [address] [facility] [address] [place], [place] [id number] PCP - General Internal Medicine 03/25/20 documented as of this encounter
[2025-03-06 11:00] LABS: Cholesterol 189 mg/dl (140-200); HDL Cholesterol 42 mg/dl (40-60); Triglycerides 116 mg/dl (30-150)
== END 2025-03-06 23:59 | disposition home or self-care (01) ==
LOC: LAB 08:58
PROVIDERS: PCP Internal Medicine; Visit Provider Nurse Practitioner Family
DX: I25.10 Atherosclerotic heart disease of native coronary artery without angina pectoris (principal); E78.5 Hyperlipidemia, unspecified
CPT/HCPCS: 36415; 80061

== ENCOUNTER 2025-03-13 14:13 | Emergency (ER) | payer BC, SELFPAY ==
--- OUTSIDE RECORDS SUMMARY | 2025-03-02 16:00 | XMS_ITS | Encounter Summary ---
Author Organization [facility] Address [address] [place] [address] Care Team Providers Care Residential Monitor Name Role Phone Rehan Maxwell MD Primary Care Provider [phone] Reason for Visit * Reason Comments Diabetes Type 1 diabetes emma itus with hyperglycemia Encounter Details Date Type Department Care Team (Late st Contact Info) Description 03/02/2025 4:00 PM EDT Office Visit [facility] END[facility] [address] [place] [address] Katarina Briceño MD [address] [facility] [address] [place] [address] Type 1 diabetes mellitus with hyperglycemia [...] Description 04/06/2025 3:00 PM EST Office Visit [facility] C[facility] [address] [place] [address] Sonal Dunne APRN [address] [place] [address] 07/05/2025 3:30 PM EST Office Visit [facility] [address] [place] [address] Katarina Briceño MD [address] [place] [address] documented as of this encounter [...] Hemoglobin A1C 7.3(A) 4.5 - 5.7 % [facility] Lot Number [id number] [facility] Expiration Date 2026-09-21 [facility] Blood 03/02/2025 3:56 PM EDT us Katarina Briceño MD POINT OF CARE TEST ORDERABLES Fi nal Result [facility]
[address] [place] [address], * (ABNORMAL) POC Glucose, Blood (03/02/2025 3:55 PM EDT) Glucose 160(A) 70 - 130 mg/dL Lot Number [id number] Expiration Date 2026-08-07 Blood 03/02/2025 3:55 PM EDT us Katarina Briceño MD POINT OF CARE TEST ORDERABLES Fi nal Result documented in this encounter Visit Diagnoses Diagnosis Type 1 diabetes mellitus with hyperglycemia- Primary documented in this encounter Care Teams Residential Monitor Relationship Specialty Start Date End Date Rehan Maxwell MD [address] [facility] [address] [place] [address] PCP - General Internal Medicine 03/25/20 documented as of this encounter
[2025-03-13] VITALS (7 sets, daily range): BP systolic 155–176; BP diastolic 85–98; PULSE 54–69; RESP 16–18; TEMP 36.8; O2SAT 99–100; BMI 25.7
--- NOTE | 2025-03-13 14:24 | XR_ITS ---
PROCEDURE INFORMATION: Exam: XR Left Knee Exam date and time: 03/13/2025 2:28 PM Age: 59 years old Clinical indication: Injury or trauma; Fall; Blunt trauma; Knee; Left; Additional info: Fall off roof valgus deformity TECHNIQUE: Imaging protocol: Radiologic exam of the left knee. Views: 3 views. COMPARISON: CR XR FEMUR LT 2V 03/13/2025 2:28 PM FINDINGS: Bones/joints: There is a comminuted minimally displaced fracture involving the lateral tibial plateau and the intercondylar eminence. Recommend triplanar CT of the knee for further evaluation. Mild suprapatellar joint effusion Soft tissues: Soft tissue swelling of the knee IMPRESSION: There is a comminuted minimally displaced fracture involving the lateral tibial plateau and the intercondylar eminence. Recommend triplanar CT of the knee for further evaluation.
--- NOTE | 2025-03-13 14:24 | XR_ITS ---
PROCEDURE INFORMATION: Exam: XR Left Tibia and Fibula Exam date and time: 03/13/2025 2:28 PM Age: 59 years old Clinical indication: Injury or trauma; Fall; Blunt trauma; Knee; Left; Additional info: Fall, knee deformity TECHNIQUE: Imaging protocol: Radiologic exam of the left tibia and fibula. Views: 2 views. COMPARISON: CR XR KNEE LT 3V 03/13/2025 2:28 PM FINDINGS: Bones/joints: Lateral tibial plateau fracture. Fracture of the intercondylar eminence. Recommend CT of the knee for further evaluation. . Soft tissues: Soft tissue swelling of the knee IMPRESSION: Comminuted minimally displaced Lateral tibial plateau fracture. Comminuted minimally displaced Fracture of the intercondylar eminence. Recommend CT of the knee for further evaluation. .
--- NOTE | 2025-03-13 14:24 | XR_ITS ---
PROCEDURE INFORMATION: Exam: XR Left Femur Exam date and time: 03/13/2025 2:28 PM Age: 59 years old Clinical indication: Injury or trauma; Fall; Blunt trauma; Thigh or upper leg; Left; Additional info: Fall, distal pain TECHNIQUE: Imaging protocol: Radiologic exam of the left femur. Views: 2 views. COMPARISON: CR XR PELVIS 1-2V 10/21/2020 3:23 PM FINDINGS: Bones/joints: There is no evidence of acute fracture.There is no evidence of malalignment or dislocation. Soft tissues: Unremarkable. IMPRESSION: There is no evidence of acute fracture.There is no evidence of malalignment or dislocation.
--- OUTSIDE RECORDS SUMMARY | 2025-03-13 14:27 | XMS_ITS | Clinical Summary ---
[facility] Organization [facility] Address [address] [place] [address] Care Team Providers Care Hourly Shift Manager Name Role Phone Rehan Maxwell MD Primary Care Provider Allergies Active Allergy Reactions Criticality Noted Date [...] MG tablet tabletIndications :Coronary artery disease involving [place] coronary artery of [place] heart without angina pectoris Take 1 tablet [...] :Hyperlipidemia LDL goal <70,Coronary artery disease involving [place] coronary artery of [place] heart without angina pectoris Take 1 tablet [...] shortness of air. He went home from [facility] and took his blood pressure - it was 81/52 with a normal heart rate. He then remembered that he had taken a whole blood pressure pill instead of the half he normally takes. He has not had this happen again since but wanted to get checked out due to his families cardiac history. 06/03/2024 Abnormal DARCI. Order [facility]. Assessment & Plan (04/08/2024 3:59 PM EST): Patient had one episode of shortness of air. He went home from [facility] and took his blood pressure - it [...] has POTS. Coronary artery disease invo lving [place] coronary artery of [place] heart without angina pectoris 04/08/2024 Assessment & [...] this weekend when he gets labs for [facility]. 06/12/2024 [facility] 90% LAD stenosis treated 3.5 x [...] & Plan (07/09/2024 3:22 PM EST): 06/12/2024 [facility] 90% LAD stenosis treated 3.5 x [...] 5:26 PM EST): 06/03/24 abnormal DARCI; check [facility] Assessment & Plan (04/08/2024 4:00 PM [...] this weekend when he gets labs for [facility]. Assessment & Plan (07/09/2024 3:22 PM [...] coexisting sleep apnea that is followed at [facility]. [place]. He reports he has a cpap that he uses and that his baseline AHI was 49. Discussed strong correlation between untreated SOFIA, sleep , and CAD. Assessment & Plan (06/03/2024 5:26 PM EST): He has coexisting sleep apnea that is followed at [facility]. [place]. He reports he has a cpap that he uses and that his baseline AHI was 49. Discussed strong correlation between untreated SOFIA, sleep , and CAD. Assessment & Plan (04/08/2024 4:00 PM EST): He has coexisting sleep apnea that is followed at [facility]. [place]. He reports he has a cpap [...] lateral, and apex hypokinetic. Dr. Andrews recommends [facility]. Discussed risks and benefits of left heart catherization. Patient would like to move forward with this. Assessment & Plan (06/03/2024 5:19 PM EST): 06/03/2024 DARCI- Abnormal stress echo consistent with an intermediate risk for myocardial ischemia. The following left ventricular wall segments are hypokinetic: mid anterior, apical anterior, apical lateral, and apex hypokinetic. Dr. Andrews recommends [facility]. Discussed risks and benefits of left heart catherization. Patient would like to move forward with this. Hypotension due to drugs 04/08/2024 Assessment & Plan (04/08/2024 3:59 PM EST): Patient had one episode of shortness of air. He went home from [facility] and took his blood pressure - it was 81/52 with a normal heart rate. He then remembered that he had taken a whole blood pressure pill instead of the half he normally takes. He has not had this happen again since but wanted to get checked out due to his families cardiac history. 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 03/02/2025 4:00 PM EDT Office Visit [facility] ENDOCRINOLOGY [address] [place] [address] Katarina Briceño MD Type 1 diabetes mellitus with hyperglycemia (Primary Dx) 03/02/2025 Travel 12/14/2024 Refill [facility] [address] [place] [address] Katarina Briceño MD Type 1 diabetes mellitus with hyperglycemia from Last 3 Months Immunizations Immunization Administration Dates Next Due Fluzone >6mos 03/18/2017 Fluzone (or Fluarix & Flulaval for VFC) >6mos Family History Medical History Relation Name Comments Arthritis Father Guillermo Fajardo Heart attack Father Guillermo Fajardo Hyperlipidemia Father Guillermo Fajardo Hypertension Father Guillermo Fajardo Heart attack Maternal Grandmother Arthritis Mother Mary Jane Fajardo Hyperlipidemia Mother Mary Jane Fajardo Hypertension Mother Mary Jane Fajardo Relation Name Status Comments Father Guillermo Fajardo [...] Description 04/06/2025 3:00 PM EST Office Visit [facility] [place]ARDIOLOGY [address] [place] [address] Sonal Dunne APRN [address] [place] [address] 07/05/2025 3:30 PM EST Office Visit [facility] ENDOCRINOLOGY [address] [place] [address] Katarina Briceño MD [address] [place] [address] Health Maintenance Due Date Last [...] 12/18/2024 03/30/2022, 03/18/2017 LIPID PANEL 06/12/2025 06/12/2024, 09/2 07/2023, 07/08/2023, Additional history exists HEMOGLOBIN A1C 08/31/2025 03/02/2025, 09/17, 06/12/2024, Additional history exists URINE MICROALBUMIN-CREATININ E RATIO (uACR) 10/15/2025 10/15/2024, 07/08/2023, 11/13/2021, Additional history exists Medical Devices Implanted Type Area Front Desk Attendant Device Identifier Shelf Expiration Date Model / Serial / Lot [employer]nt [employer] Xience/Skypoi nt Rapdxng 3x38mm - [id number] Implanted:Qty : 1 on 06/12/2024 by Maximino Zaragoza MD at [facility] N/A: Coronary [employer] 03/08/2027 [id number] / / [id number] [employer] Xience/Skypoi nt Rapdxng 3.5x12mm - [id number] Implanted:Qty : 1 on 06/12/2024 by Maximino Zaragoza MD at [facility] N/A: Coronary [employer] 02/09/2027 [id number] / / [id number] Stnt [employer] Xience/Skypoi nt Rapdxng 2.33v10ne - [id number] Implanted:Qty : 1 on 06/12/2024 by Maximino Zaragoza MD at [facility] N/A: Coronary [employer] 01/22/2027 [id number] / / [id number] Procedures Procedure Name Priority Date/Time Associated Diagnosis [...] Hemoglobin A1C 7.3(A) 4.5 - 5.7 % [facility] Lot Number [id number] [facility] Expiration Date 2026-09-21 [facility] Blood 03/02/2025 3:56 PM EDT us Katarina Briceño MD POINT OF CARE TEST ORDERABLES Fi nal Result Performing Organization Address [facility]/ZIP Co de Phone Number [facility]
[address] [place] [address], * (ABNORMAL) POC Glucose, Blood (03/02/2025 3:55 PM EDT) Pathologist [facility] Glucose 160(A) 70 - 130 mg/dL Lot Number [id number] Expiration Date 2026-08-07 Blood 03/02/2025 3:55 PM EDT us Katarina Briceño MD POINT OF CARE TEST ORDERABLES Fi nal Result * Microalbumin / Creatinine Urine Ratio - Urine, Clean Catch (10/15/2024 1:59 PM EDT) Urine Urine specimen obtained by clean catch procedure / Unknown us Katarina Briceño MD URINE ORDERABLES Final Result [facility]
[address] [place] [address], * (ABNORMAL) Lipid Panel (06/12/2024 9:39 AM EST) Total Cholesterol 174 0 - 200 mg/dL 06/12/2024 10:15 AM EST [facility] Triglycerides 112 0 - 150 mg/dL 06/12/2024 10:15 AM EST [facility] HDL Cholesterol 48 40 - 60 mg/dL 06/12/2024 10:15 AM EST [facility] LDL Cholesterol 106(H) 0 - 100 mg/dL 06/12/2024 10:15 AM EST [facility] VLDL Cholesterol 20 5 - 40 mg/dL 06/12/2024 10:15 AM EST [facility] LDL/HDL Ratio 2.16 06/12/2024 10:15 AM EST [facility] Blood Line / Unknown 06/12/2024 9: 39 AM EST 06/12/2024 9:50 AM EST [facility] - 06/12/2024 10:15 AM EST Cholesterol [...] is calculated using the NIH LDL-C calculation. Nika Garcia APRN LAB BLOOD ORDERABLES Final Result [facility]
[address] [place] [address], from Last 3 Months or Most Recently Relevant to Health Maintenance Insurance [facility] PPO Care Teams Hourly Shift Manager Relationship Specialty Start Date End Date Rehan Maxwell MD [address] [facility] [address] [address] PCP - General Internal Medicine 03/25/20
--- OUTSIDE RECORDS SUMMARY | 2025-03-13 14:27 | XMS_ITS ---
Author Organization Unknown ENCOUNTERS Encounter Performer Location Date Diagnosis Diagnosis Status Emergency [facility] [address] [place] [address] [id number] Pre Admit [facility] [address] [place] [address] [id number] *Note: Encounters from your own facility or health system may be excluded. Allergies, Adverse Reactions, Alerts Allergen Type Severity Identification Date levofloxacin drug allergy 0 [id number] Medications Name Date Quantity Days Supplied GPI Number
--- OUTSIDE RECORDS SUMMARY | 2025-03-13 14:27 | XMS_ITS | Encounter Summary ---
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 Social History Tobacco Use Types Packs/Day Years [...] Description 04/06/2025 3:00 PM EST Office Visit [facility] CARDIOLOGY [address] [place] [address] Sonal Dunne APRN [address] [place] [address] 07/05/2025 3:30 PM EST Office Visit [facility] ENDOCRINOLOGY [address] [facility] [address] [place] [address] Katarina Briceño MD [address] [facility] [address] [place] [address] documented as of this encounter Visit Diagnoses Diagnosis 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
--- OUTSIDE RECORDS SUMMARY | 2025-03-13 14:27 | XMS_ITS | Encounter Summary ---
[facility] Organization [facility] Address [address] [place] [address] Care Team Providers Care Research Affiliate Name Role Phone Rehan Maxwell MD Primary Care Provider [phone] Encounter Details Date Type Department Care Team [...] Description 04/06/2025 3:00 PM EST Office Visit [facility] CARDIOLOGY [address] [place] [id number] Sonal Dunne APRN [address] [place] [address] 07/05/2025 3:30 PM EST Office Visit [facility] ENDOCRINOLOGY [address] [facility] [address] [place] [address] Katarina Briceño MD [address] [facility] [address] [place], [place] [id number] documented as of this encounter Visit Diagnoses Not on filedocumented in this encounter Care Teams Research Affiliate Relationship Specialty Start Date End Date Rehan Maxwell MD [address] [facility] [address] [place], [place] [id number] PCP - General Internal Medicine 03/25/20 documented as of this encounter
[2025-03-13] MEDS: FENTANYL 100MCG/2ML VIAL 50 MCG IV (14:39)
--- NOTE | 2025-03-13 14:40 | CT_ITS ---
PROCEDURE INFORMATION: Exam: CT Left Lower Extremity Without Contrast, Knee Exam date and time: 03/13/2025 3:03 PM Age: 59 years old Clinical indication: Injury or trauma; Fall; Blunt trauma; Knee; Left; Additional info: Fall off roof TECHNIQUE: Imaging protocol: CT of the left lower extremity without contrast was performed. Exam focused on the knee. Radiation optimization: All CT scans at this facility use at least one of these dose optimization techniques: automated exposure control; mA and/or kV adjustment per patient size (includes targeted exams where dose is matched to clinical indication); or iterative reconstruction. COMPARISON: CR XR KNEE LT 3V 03/13/2025 2:28 PM FINDINGS: Bones/joints: Moderate lipohemarthrosis consistent with intra-articular fracture. . Comminuted displaced impacted fracture of the lateral tibial plateau extending into the intercondylar eminence and extending distally in the tibial shaft. Soft tissues: Soft tissue swelling of the knee IMPRESSION: 1. Moderate lipohemarthrosis consistent with intra-articular fracture. . 2. Comminuted displaced impacted fracture of the lateral tibial plateau extending into the intercondylar eminence and extending distally in tibial shaft.
--- NOTE | 2025-03-13 14:40 | CT_ITS ---
PROCEDURE INFORMATION: Exam: CTA Left Lower Extremity With Contrast Exam date and time: 03/13/2025 3:08 PM Age: 59 years old Clinical indication: Injury or trauma; Fall; Blunt trauma; Knee; Left; Additional info: Fall off roof knee pain TECHNIQUE: Imaging protocol: Computed tomographic angiography of the left lower extremity with contrast. 3D rendering (Not supervised by radiologist): MIP and/or 3D reconstructed images were created by the technologist. Radiation optimization: All CT scans at this facility use at least one of these dose optimization techniques: automated exposure control; mA and/or kV adjustment per patient size (includes targeted exams where dose is matched to clinical indication); or iterative reconstruction. Contrast material: ISO 370; Contrast volume: 80 ml; Contrast route: INTRAVENOUS (IV); COMPARISON: CT KNEE LT WO CON 03/13/2025 3:03 PM FINDINGS: Left femoral/popliteal arteries: No occlusion or significant stenosis. Left infrapopliteal arteries: No occlusion or significant stenosis. Other arteries: No involvement of the arterial structures. Bones/joints: Moderate lipohemarthrosis in the suprapatellar bursa. Comminuted impacted lateral tibial plateau fracture extends to involve the intercondylar eminence and the more proximal tibial shaft. Soft tissues: Unremarkable. IMPRESSION: 1. No involvement of the arterial structures. 2. Comminuted impacted lateral tibial plateau fracture extends to involve the intercondylar eminence and the more proximal tibial shaft.
--- NOTE | 2025-03-13 14:44 | PC.NURSE ---
1428- [facility]
--- NOTE | 2025-03-13 14:54 | HMH.EDGENADL ---
Discharge Plan Disposition Chief Complaint: Fall Prescriptions Prescriptions: No Action clopidogrel 75 mg tablet 75 mg PO DAILY Patient Comments: TAKE 1 TABLET BY MOUTH ONCE DAILY carvedilol 3.125 mg tablet 3.125 mg PO BID levothyroxine 50 mcg tablet 50 mcg PO DAILY Patient Comments: TAKE 1 TABLET BY MOUTH ONCE DAILY insulin lispro 100 unit/mL solution 37 unit continuous subcutaneous infusion DAILY Patient Comments: USE DIRECTED PER INSULIN PUMP, UP TO 100 UNITS MAX PER DAY olmesartan 20 mg tablet 20 mg PO DAILY Patient Comments: TAKE 1 TABLET BY MOUTH ONCE DAILY ezetimibe 10 mg tablet 10 mg PO DAILY Patient Comments: TAKE 1 TABLET BY MOUTH ONCE DAILY rosuvastatin 10 mg tablet 10 mg PO DAILY Patient Comments: TAKE 1/2 (ONE-HALF) TABLET BY MOUTH TWICE DAILY (DME) Dexcom G6 Sensor Device See Rx Instructions .ROUTE .MEDSUPPLY Qty: 1 Patient Comments: PLACE 1 SENSOR TO APPROPIATE AREA EVERY 10 DAYS Rx Instructions: As directed (DME) Dexcom G6 Transmitter Device See Rx Instructions .ROUTE .MEDSUPPLY Qty: 1 Patient Comments: USE 1 DEVICE EVERY 3 MONTHS Rx Instructions: As directed Jardiance 10 mg tablet 10 mg PO DAILY ibuprofen 800 mg tablet 800 mg PO TID PRN (Reason: pain/inflammation) Qty: 90 0RF Rx Instructions: Take with food or meal piroxicam 20 mg capsule See Rx Instructions .ROUTE .COMPLEX Qty: 30 2RF Dose Instruction: Take 1 capsule by mouth once daily Rx Instructions: Take 1 capsule by mouth once daily Referrals Follow up/Referrals: Rehan Maxwell MD [Primary Care Provider, Medical] - See instructions Stand Alone Forms Stand Alone Forms: Transfer Record - ED Print Language Print Language: Honduran Discharge ED Provider: Christiano Hyatt General Adult HPI <Christiano Hyatt MD - Last Filed: 03/13/25 15:22> General Chief complaint: Fall Stated complaint: AO 03/13 1345, fell off roof, inj left leg Time Seen by Provider: 03/13/25 14:17 Mode of Arrival: Ambulatory Source of Information: Patient and Spouse Description of Symptoms (Recalled from ER Triage Doc. by RN): patient presents after a fall from a roof. patient was wearing a full upper body harness that stopped stuart majority of his fall. marlenyt stated right before the fall he felt a little light headed which is what prompted him to get off the roof. he stated he is a type one diabetic of many years. family that is present with him was able to look back at his glucose levels around the time of the fall and it was calculated at 40 at the time of the fall (1340). History of Present Illness HPI narrative: Patient is a 59-year-old male with past medical history of insulin-dependent diabetes with insulin pump, hyperlipidemia who presents emergency department for evaluation of traumatic injury sustained in a fall. Patient was working on a roof, harnessed when he inadvertently fell off striking his left lower extremity. He has pain just distal to his knee with limited ability to bear weight and he presents here for continued evaluation. No anticoagulants, did not strike his head or lose consciousness. No back pain, no chest pain, no other extremity pain although he does have bruising over his right tibia. No other acute complaints at this time. Please note that above description of symptoms, in this electronic medical record under categorization of recalled from ER triage doctor by RN are reflective of an initial nursing assessment, however, is not reflective of my full history and physical exam that was personally taken and clarified. Consequentially, this preceding description of symptoms, which may include the patient's categorized chief complaint in the EMR, do not reflect my personal clinical impression, and the ultimate description of history of present illness and patient stated complaints should be deferred to this section of the note. Unless stated otherwise or congruent with this section of the note, additional signs, symptoms, or incongruence should be interpreted as inaccurate with my clinical impression. Related Data Home Medications ?Medication ?Instructions ?Recorded ?Confirmed blood-glucose sensor (Dexcom G6 #1 ea 02/23/25 02/23/25 Sensor device) blood-glucose transmitter (Dexcom #1 ea 02/23/25 02/23/25 G6 Transmitter device) carvedilol 3.125 mg tablet 3.125 mg PO BID 02/23/25 02/23/25 clopidogrel 75 mg tablet 75 mg PO DAILY 02/23/25 02/23/25 empagliflozin 10 mg tablet 10 mg PO DAILY 02/23/25 02/23/25 (Jardiance) ezetimibe 10 mg tablet 10 mg PO DAILY 02/23/25 02/23/25 insulin lispro 100 unit/mL 37 unit continuous subcutaneous 02/23/25 02/23/25 subcutaneous solution infusion DAILY levothyroxine 50 mcg tablet 50 mcg PO DAILY 02/23/25 02/23/25 olmesartan 20 mg tablet 20 mg PO DAILY 02/23/25 02/23/25 rosuvastatin 10 mg tablet 10 mg PO DAILY 02/23/25 02/23/25 Previous Rx's ?Medication ?Instructions ?Recorded piroxicam 20 mg capsule See Rx Instructions .Route 12/25/24 Held on 02/23/25. .COMPLEX #30 caps Instructions: Home Medication placed on hold at Doctor's office ibuprofen 800 mg tablet 800 mg PO TID PRN 02/23/25 pain/inflammation #90 tabs Allergies Allergy/AdvReac Type Severity Reaction Status Date / Time levofloxacin (From [facility]) Allergy Severe Cramping Verified 02/23/25 16:11 of the Muscles PFSH <Christiano Hyatt MD - Last Filed: 03/13/25 15:22> [facility] Disclaimer: The information contained in this section may have been updated after the patient was seen, as this information can be updated by other users. Social History Smoking Status: Never smoker alcohol intake: never current occupational status: employed Travel in the last 8 weeks?: None Have you lived/traveled outside [place] in past 30 days?: No Contact w/someone who lives/traveled outside US past 30 days?: No Exposure to someone with infectious disease in past 14 days?: No Do you have a fever (greater than 100.4 F or 38 C)?: No Have you tested positive for COVID-19?: No Exposed to someone with COVID-19 in past 14 days?: No Do you have a sore throat?: No Do you have a cough?: No Do you have any weakness?: No Do you have any diarrhea?: No Are you experiencing any unusual bleeding?: No Do you have any muscle aches/pain?: No Do you have any abdominal pain?: No Are you experiencing loss of taste or smell?: No Other Medical History Have you received the Pneumonia Vaccine: No <Christiano Hyatt MD - Last Filed: 03/13/25 15:22> ROS Obtained: Yes Systems reviewed as appropriate & no additional complaints except as documented Physical Exam <Christiano Hyatt MD - Last Filed: 03/13/25 15:22> General General appearance: alert Comment: Appearing in pain in bed Head Head exam: atraumatic and normocephalic Eye Eye exam: Present PERRL and EOMI ENT ENT exam: Present mucous membranes moist Neck Neck exam: Present normal inspection Chest Chest inspection: Present normal inspection and symmetric chest wall rise Respiratory Respiratory exam: Present normal lung sounds bilaterally; Absent respiratory distress Cardiovascular Cardiovascular exam: Present regular rate and normal rhythm Abdominal Exam Abdominal exam: Present soft; Absent tenderness Extremities Exam Extremities exam: Present other (Valgus deformity of the left knee. Tenderness over the anterior tibial tuberosity and the left area over the tibia and fibula. Extensor mechanism intact. Palpable dorsal pedal pulse. No tenderness over the remainder of extremities except mild tenderness over the right mid tibia.) Back Exam Back exam: Absent tenderness Neurological Exam Neurological exam: Present alert Psychiatric Psychiatric exam: Present normal affect Skin Skin exam: Present warm and dry Medical Decision Making <Christiano Hyatt MD - Last Filed: 03/13/25 15:22> Medical Records Screening: Per USPSTF and CDC recommendations, given the prevalence of disease in our region, it is our hospital?s policy to screen for HIV and viral Hepatitis for all patients aged 18 and over and those with ongoing risk factors. [place]ak Inquiry Pt receiving controlled substance: No Vital Signs: 03/13/25 14:35 03/13/25 14:39 03/13/25 15:30 Temperature 98.2 F Temperature Source Oral Pulse Rate 69 58 L Pulse Rate [Right Radial] 67 Respiratory Rate 18 Blood Pressure 155/87 H 157/85 H Blood Pressure [Right Arm] 155/87 H Blood Pressure Mean [Right Arm] 109 Blood Pressure Source [Right Arm] Automatic Cuff Blood Pressure Position [Right Arm] Supine 02 Sat by Pulse Oximetry 99 99 100 Oxygen Delivery Method Room Air Room Air Room Air 03/13/25 15:35 03/13/25 16:00 03/13/25 16:30 Temperature Temperature Source Pulse Rate 58 L 54 L 68 Pulse Rate [Right Radial] Respiratory Rate Blood Pressure 157/85 H 162/89 H 176/98 H Blood Pressure [Right Arm] Blood Pressure Mean [Right Arm] Blood Pressure Source [Right Arm] Blood Pressure Position [Right Arm] 02 Sat by Pulse Oximetry 100 100 100 Oxygen Delivery Method Room Air Room Air Room Air Orders (Tests/Meds): ED MEDICATIONS Discontinued Medications Generic Name Dose Route Start Last Admin Trade Name Jose PRN Reason Stop Dose Admin Fentanyl Citrate 50 mcg 03/13/25 14:24 03/13/25 14:39 Fentanyl 100mcg/2ml Vial IV 03/13/25 14:25 50 mcg ONCE ONE Administration Iopamidol 80 ml 03/13/25 15:09 03/13/25 15:10 Iopamidol-370 (76%);100ml Bottle IV 03/13/25 15:10 80 ml ONCE ONE Administration Morphine Sulfate 4 mg 03/13/25 16:17 03/13/25 16:19 Morphine 4mg/Ml Syringe IV 03/13/25 16:18 4 mg ONCE ONE Administration Sodium Chloride 50 ml 03/13/25 15:09 03/13/25 15:10 0.9 % Sodium Chloride 50 Ml Vial IV 03/13/25 15:10 50 ml ONCE ONE Administration Sodium Chloride 10 ml 03/13/25 15:09 03/13/25 15:10 Sodium Chloride 0.9% 10ml Syr (Rad Only) IV 03/13/25 15:10 10 ml ONCE ONE Administration ORDERS Category Date Time Status CT angio LE LT Stat Cat Scan 03/13/25 14:[address] knee LT wo con Stat Cat Scan 03/13/25 14:40 Completed Femur XR left 2 views [XR femur LT 2V] Stat Exams 03/13/25 14:24 Completed Fibula/tibia XR left 2 views [XR tibia fibula LT 2V] Exams 03/13/25 14:24 Completed Stat Knee XR left 3 views [XR knee LT 3V] Stat Exams 03/13/25 14:24 Completed Medical Decision Narrative: In summary patient is a 59-year-old male with past medical history described above presents emergency department for evaluation of traumatic injury sustained from a fall from a roof while harnessed. Patient is hemodynamically stable nontoxic-appearing upon arrival, afebrile. Based on history and physical exam differential includes fracture, dislocation of the left lower extremity, among others. No concern for transmitted axial load to the spine as he is not tender in his pelvis or sacroiliac joint. No concern for head trauma or thoracoabdominal trauma based on history and physical exam and imaging with respect to this was considered will be deferred.. Given this workup will be conducted with hematologic labs plain film femurs lower extremity. Plain films informally interpreted by me there appears to be a comminuted tibial fracture for which CT will be obtained. Although he has a pulse in his left lower extremity CTA will be conducted to his groin for arterial injury. Fentanyl given for pain control. Plain films of the right lower extremity where bruising is over his tibia although he has nontender was ordered but patient refused. Ultimate disposition from CT reads pending at time of transfer of care to the oncoming physician, Dr. Cedillo <Yodit Cedillo, DO - Last Filed: 03/13/25 16:59> Vital Signs: 03/13/25 14:35 03/13/25 14:39 03/13/25 15:30 Temperature 98.2 F Temperature Source Oral Pulse Rate 69 58 L Pulse Rate [Right Radial] 67 Respiratory Rate 18 Blood Pressure 155/87 H 157/85 H Blood Pressure [Right Arm] 155/87 H Blood Pressure Mean [Right Arm] 109 Blood Pressure Source [Right Arm] Automatic Cuff Blood Pressure Position [Right Arm] Supine 02 Sat by Pulse Oximetry 99 99 100 Oxygen Delivery Method Room Air Room Air Room Air 03/13/25 15:35 03/13/25 16:00 03/13/25 16:30 Temperature Temperature Source Pulse Rate 58 L 54 L 68 Pulse Rate [Right Radial] Respiratory Rate Blood Pressure 157/85 H 162/89 H 176/98 H Blood Pressure [Right Arm] Blood Pressure Mean [Right Arm] Blood Pressure Source [Right Arm] Blood Pressure Position [Right Arm] 02 Sat by Pulse Oximetry 100 100 100 Oxygen Delivery Method Room Air Room Air Room Air Lab Data Lab results reviewed: Yes I reviewed the patient's lab results. Orders (Tests/Meds): ED MEDICATIONS Discontinued Medications Generic Name Dose Route Start Last Admin Trade Name Jose PRN Reason Stop Dose Admin Fentanyl Citrate 50 mcg 03/13/25 14:24 03/13/25 14:39 Fentanyl 100mcg/2ml Vial IV 03/13/25 14:25 50 mcg ONCE ONE Administration Iopamidol 80 ml 03/13/25 15:09 03/13/25 15:10 Iopamidol-370 (76%);100ml Bottle IV 03/13/25 15:10 80 ml ONCE ONE Administration Morphine Sulfate 4 mg 03/13/25 16:17 03/13/25 16:19 Morphine 4mg/Ml Syringe IV 03/13/25 16:18 4 mg ONCE ONE Administration Sodium Chloride 50 ml 03/13/25 15:09 03/13/25 15:10 0.9 % Sodium Chloride 50 Ml Vial IV 03/13/25 15:10 50 ml ONCE ONE Administration Sodium Chloride 10 ml 03/13/25 15:09 03/13/25 15:10 Sodium Chloride 0.9% 10ml Syr (Rad Only) IV 03/13/25 15:10 10 ml ONCE ONE Administration ORDERS Category Date Time Status CT angio LE LT Stat Cat Scan 03/13/25 14:[address] knee LT wo con Stat Cat Scan 03/13/25 14:40 Completed Femur XR left 2 views [XR femur LT 2V] Stat Exams 03/13/25 14:24 Completed Fibula/tibia XR left 2 views [XR tibia fibula LT 2V] Exams 03/13/25 14:24 Completed Stat Knee XR left 3 views [XR knee LT 3V] Stat Exams 03/13/25 14:24 Completed Medical Decision Narrative: In summary patient is a 59-year-old male with past medical history described above presents emergency department for evaluation of traumatic injury sustained from a fall from a roof while harnessed. Patient is hemodynamically stable nontoxic-appearing upon arrival, afebrile. Based on history and physical exam differential includes fracture, dislocation of the left lower extremity, among others. No concern for transmitted axial load to the spine as he is not tender in his pelvis or sacroiliac joint. No concern for head trauma or thoracoabdominal trauma based on history and physical exam and imaging with respect to this was considered will be deferred.. Given this workup will be conducted with hematologic labs plain film femurs lower extremity. Plain films informally interpreted by me there appears to be a comminuted tibial fracture for which CT will be obtained. Although he has a pulse in his left lower extremity CTA will be conducted to his groin for arterial injury. Fentanyl given for pain control. Plain films of the right lower extremity where bruising is over his tibia although he has nontender was ordered but patient refused. Ultimate disposition from CT reads pending at time of transfer of care to the oncoming physician, Dr. Mamadou Cedillo, DO I assumed care of the patient at 1500. Patient's x-rays were reviewed and interpreted by myself and per radiology, patient did have a comminuted left lateral tibial plateau fracture. CT scan as well as CTA were obtained. CT scans were obtained and CT of the left knee showed similar pathology as the x-ray which was a comminuted displaced lateral tibial plateau fracture that extends into the intercondylar eminence which extends into the tibial shaft. CTA obtained of the left lower extremity was unremarkable for any arterial injury. Unfortunately, our orthopedic doctor is unavailable at this time therefore I consulted with orthopedics. Patient was accepted as a transfer to the [facility] emergency department for further orthopedic evaluation. On my repeat evaluation, patient is neurovascularly intact has appropriate distal DP pulses. Patient does have significant swelling of the left lateral knee. Patient was given a dose of morphine and patient's pain has been well-controlled. At this time, patient will be sent via BLS in stable condition. Patient was accepted by Dr. Yun. Critical Care <Christiano Hyatt MD - Last Filed: 03/13/25 15:22> Critical Care Time Critical Care Time: Yes Attestation: On 03/13/25, the high probability of a clinically significant, sudden or life threatening deterioration of the following system(s) required my full and direct attention, intervention and personal management. The time I documented below is in addition to time spent performing reported procedures but includes the following listed in this critical care notation. Total Time Total Critical Care Time: 35
[2025-03-13] MEDS: 0.9 % SODIUM CHLORIDE 50 ML VIAL IV (15:10)
[2025-03-13] MEDS: IOPAMIDOL-370 (76%);100ML BOTTLE 80 ML IV (15:10)
[2025-03-13] MEDS: SODIUM CHLORIDE 0.9% 10ML SYR (RAD ONLY) 10 ML IV (15:10)
[2025-03-13] MEDS: MORPHINE 4MG/ML SYRINGE 4 MG IV (16:19)
--- NOTE | 2025-03-13 16:33 | PC.NURSE ---
called [facility] per Dr Cedillo for transfer/consult for comminuted lateral tibial plateau fracture. [facility] advised they will call back
--- NOTE | 2025-03-13 16:37 | PC.NURSE ---
sridevi mcgill on phone with [facility]
--- NOTE | 2025-03-13 16:45 | PC.NURSE ---
report called to olena at [facility]
--- NOTE | 2025-03-13 16:45 | PC.NURSE ---
call made to EMS for pt transport to [facility]
== END 2025-03-13 17:20 | disposition other institution (70) ==
PROVIDERS: Emergency Provider Emergency Medicine; PCP Internal Medicine
DX: S82.252A Displaced comminuted fracture of shaft of left tibia, initial encounter for closed fracture (principal); W13.2XXA Fall from, out of or through roof, initial encounter
CPT/HCPCS: 73552; 73562; 73590; 73700; 73706; 96374; 96375; 99285; J2270; J3010; Q9967